=== PATIENT | male | born 1975 | race African-American/Black ===

== ENCOUNTER 2020-08-09 13:59 | Emergency (ER) | payer OTHER ==
[2020-08-09 14:26] VITALS: BMI 22.1
[2020-08-09] MEDS ORDERED: SODIUM CHLORIDE IV ONE (14:31)
[2020-08-09] MEDS ORDERED: IBUPROFEN 600 MG TABLET (FP) PO ONE ×2 (14:55→15:17)
[2020-08-09 15:17] LABS: BASO % 0.1 % (0-2.0); EOS % 0.9 % (0-4.5); HEMATOCRIT 46.6 % (35.4-49); HEMOGLOBIN 15.5 GM/dL (11.7-16.9); LYMPH % 4.9 % (8-40); MCH 32.2 pg (25.7-33.7); MCHC 33.2 g/dl (32.0-35.9); MEAN CELL VOLUME 97.2 fl (80-96); MONO % 1.9 % (3.8-10.2); NEUT % 92.2 % (42.8-82.8); RDW 13.4 % (11.9-15.9); WHITE BLOOD COUNT 2.2 K/mm3 (4.0-10.0)
[2020-08-09 15:25] LABS: INR 1.23 (0.83-1.09); PROTHROMBIN TIME (PATIENT) 14.8 SEC (9.7-13.0)
[2020-08-09 15:27] LABS: ACTIVATED PTT 34.8 SECONDS (25.2-36.5)
[2020-08-09 15:37] LABS: EPI CELLS >36 /uL (0-25.1); HYALINE CASTS 5 /uL (0-3.1); PH,URINE 5.5 (5.0-8.0); URINE APPEARANCE TURBID; URINE BILIRUBIN 2+ (NEGATIVE); URINE COLOR ORANGE; URINE GLUCOSE (UA) NEGATIVE (NEGATIVE); URINE KETONE TRACE (NEGATIVE); URINE LEUK ESTERASE TRACE (NEGATIVE); URINE NITRITE POSITIVE (NEGATIVE); URINE PROTEIN 3+ (NEGATIVE); URINE RBC 16 /uL (0-23.9); URINE UROBILINOGEN 4.0 E.U/dl mg/dL (0.2-1.0); URINE WBC 84 /uL (0-25.8)
[2020-08-09 15:48] LABS: PLATELET COUNT 17 K/MM3 (134-434)
[2020-08-09 15:49] LABS: CHLORIDE 94 mmol/L (98-107); SODIUM 133 mmol/L (136-145)
[2020-08-09 15:51] LABS: ALBUMIN 3.5 g/dl (3.4-5.0); ANISOCYTOSIS 0; BLOOD UREA NITROGEN 13.2 mg/dL (7-18); CALCIUM 8.1 mg/dL (8.5-10.1); CO2 28 mmol/L (21-32); GLUCOSE,RANDOM 112 mg/dL (74-106); MACROCYTOSIS 0; PLATELET ESTIMATE DECREASED
[2020-08-09 15:54] LABS: SGOT/AST 97 U/L (15-37); SGPT/ALT 74 U/L (13-61)
[2020-08-09 15:55] LABS: CREATININE 1.5 mg/dL (0.55-1.3)
[2020-08-09 15:56] LABS: BILIRUBIN,TOTAL 4.7 mg/dL (0.2-1); TOT PROT 7.2 g/dl (6.4-8.2)
[2020-08-09 15:57] LABS: ALK PHOS 115 U/L (45-117)
[2020-08-09 15:58] LABS: LACTIC ACID 4.1 mmol/L (0.4-2.0)
[2020-08-09 16:10] LABS: ANION GAP 11 MMOL/L (8-16)
[2020-08-09] MEDS ORDERED: POTASSIUM CHLORIDE ORAL LIQUID 20 MEQ/15 ML PO ONE (16:19)
[2020-08-09] MEDS ORDERED: POTASSIUM CHLORIDE ORAL LIQUID 20 MEQ/15 ML ONE (16:23)
[2020-08-09] MEDS ORDERED: KCL 10 MEQ IVPB 10 MEQ/100 ML INFUS.BAG IVPB ONE ×2 (16:23→17:37)
[2020-08-09] MEDS: KCL 10 MEQ IVPB 10 MEQ/100 ML INFUS.BAG IVPB SCH ×2 (16:37→17:43)
[2020-08-09] MEDS ORDERED: CEFTRIAXONE 1 GM in DEXTROSE 5%-WATER - 100 ML IVPB ONE (17:31)
[2020-08-09 17:36] VITALS: PULSE 105
[2020-08-09] MEDS ORDERED: CEFTRIAXONE 1 GM/50 ML BAG ONE (17:36)
[2020-08-09 19:50] VITALS: BP 112/75; TEMP 99.3
== END 2020-08-09 20:01 | disposition short-term general hospital (02) ==
LOC: JER 13:59
PROC: 3E03329 Introduction of Other Anti-infective into Peripheral Vein, Percutaneous Approach (ICD-10-PCS; principal; 2020-08-09)
PROC: 3E033GC Introduction of Other Therapeutic Substance into Peripheral Vein, Percutaneous Approach (ICD-10-PCS; 2020-08-09)
PROC: 3E0337Z Introduction of Electrolytic and Water Balance Substance into Peripheral Vein, Percutaneous Approach (ICD-10-PCS; 2020-08-09)
PROC: 3E0337Z Introduction of Electrolytic and Water Balance Substance into Peripheral Vein, Percutaneous Approach (ICD-10-PCS; 2020-08-09)
DX: B54 Unspecified malaria (principal); N17.8 Other acute kidney failure; A41.9 Sepsis, unspecified organism
CPT/HCPCS: 36415; 71045-TC-FY; 80053; 81003; 83605; 84484; 85025; 85610; 85730; 87040; 87086; 87207; 93005; 93010; 99285-25; C9803; U0003; U0005